=== PATIENT | female | born 1940 | race Caucasian/White ===

== ENCOUNTER → 2019-08-21 | Outpatient (CLI) | payer OTHER, MEDICARE | END | disposition home or self-care (01) | LOC: RAD 08:29 | PROVIDERS: ATTEND Internal Medicine Gastroenterology | DX: K44.9 Diaphragmatic hernia without obstruction or gangrene (principal); K31.89 Other diseases of stomach and duodenum; K57.10 Diverticulosis of small intestine without perforation or abscess without bleeding; K59.00 Constipation, unspecified; E11.9 Type 2 diabetes mellitus without complications; Z88.6 Allergy status to analgesic agent; Z88.5 Allergy status to narcotic agent | CPT/HCPCS: 74220 ==

== ENCOUNTER → 2019-10-10 | Outpatient (CLI) | payer OTHER, MEDICARE ==
[~2019-10-10] MED LIST: ALLO100T30 PO; B CO1TAB14 PO; CALC1TAB4 PO; ESOM40CA PO; LEVO75TA PO; LOSA100T14 PO; LYSI500T25 PO; MULT-658 PO; PIOG30TA67 PO; SODI650T PO; UBID1CAP43 PO
== END | disposition home or self-care (01) ==
LOC: STAR 10:11
PROVIDERS: ATTEND Thoracic Surgery (Cardiothoracic Vascular Surgery)
DX: Z01.818 Encounter for other preprocedural examination (principal)
CPT/HCPCS: 93005

== ENCOUNTER 2019-10-17 06:53 | Observation (INO) | payer OTHER, MEDICARE ==
[~2019-10-17] VITALS: Ht 156.2 cm; Wt 85.2 kg
[2019-10-17] MEDS ORDERED: EPINEPHRINE 1 MG/ML, 1ML ONE (06:54)
[2019-10-17] MEDS ORDERED: BUPIVACAINE/PF 0.5% ONE (06:54)
[2019-10-17] MEDS ORDERED: LACTATED RINGERS 1,000 ML IV SCH (07:16)
[2019-10-17 07:19] VITALS: BP 136/73
[2019-10-17] MEDS ORDERED: LIDOCAINE-MPF 1%, 2ML INFIL ONE (07:30)
[2019-10-17] MEDS ORDERED: SODIUM CHLORIDE 0.9% 1,000 ML IV SCH (07:32)
[2019-10-17] MEDS ORDERED: MIDAZOLAM 1 MG/ML, 2ML ONE (08:15)
[2019-10-17] MEDS ORDERED: FENTANYL PF 250 MCG/5ML ONE (08:15)
[2019-10-17] MEDS ORDERED: DEXAMETHASONE 4 MG/ML, 1ML ONE (08:16)
[2019-10-17] MEDS ORDERED: PROPOFOL 10 MG/ML, 20ML ONE (08:16)
[2019-10-17] MEDS ORDERED: ONDANSETRON 2MG/ML, 2ML ONE (08:16)
[2019-10-17] MEDS ORDERED: CEFOTETAN PMX 2GM/50ML 50 ML ONE (08:16)
[2019-10-17] MEDS ORDERED: SUGAMMADEX 200 MG/2 ML IVPush ONE (08:16)
[2019-10-17] MEDS ORDERED: ROCURONIUM 10MG/ML,5ML ONE (08:16)
[2019-10-17] MEDS ORDERED: LIDOCAINE-MPF 2% ,5ML ONE (08:16)
[2019-10-17] MEDS: LACTATED RINGERS 1,000 ML IV SCH ×2 (10:41→19:54)
[2019-10-17] MEDS ORDERED: HALOPERIDOL 5 MG/ML IV PRN (11:00)
[2019-10-17] MEDS ORDERED: ENALAPRILAT 1.25 MG/ML, 2ML IV PRN (11:00)
[2019-10-17] MEDS ORDERED: OXYcodone 5 MG/5 ML ORAL.SOL UDC PO PRN (11:00)
[2019-10-17] MEDS ORDERED: MEPERIDINE/PF 25MG/ML,1ML IVPush PRN (11:00)
[2019-10-17] MEDS ORDERED: HYDROmorphone 2 MG/ML, 1ML IVPush PRN (11:00)
[2019-10-17] MEDS ORDERED: ONDANSETRON 2MG/ML, 2ML IVPush PRN (11:00)
[2019-10-17] MEDS ORDERED: hydrALAzine 20 MG/ML, 1ML IV PRN ×2 (11:00)
[2019-10-17] MEDS ORDERED: FENTANYL PF 100 MCG/2ML IV PRN (11:00)
[2019-10-17] MEDS: INSULIN REGULAR 100 UNITS/ML, 3ML VIAL SQ-INSULIN SCH ×3 (11:00→19:56)
[2019-10-17] MEDS ORDERED: OXYcodone 5 MG/5 ML ORAL.SOL UDC ONE ×2 (11:53→13:39)
[2019-10-17] MEDS ORDERED: FAMOTIDINE 20 MG/2 ML ONE (11:56)
[2019-10-17] MEDS: FAMOTIDINE 20 MG/2 ML IV SCH ×2 (12:15→23:58)
[2019-10-17] MEDS: OXYcodone 5 MG/5 ML ORAL.SOL UDC PO PRN ×3 (13:39→20:54)
[2019-10-17 18:39] VITALS: BP 151/75
[2019-10-18 00:48] VITALS: BP 126/59
[2019-10-18] MEDS: LACTATED RINGERS 1,000 ML IV SCH ×3 (03:52→19:55)
[2019-10-18] MEDS: LEVOTHYROXINE 75 MCG TABLET PO SCH (05:36)
[2019-10-18] MEDS: INSULIN REGULAR 100 UNITS/ML, 3ML VIAL SQ-INSULIN SCH ×4 (07:00→20:58)
[2019-10-18] MEDS: morphine SULFATE 10 MG/ML, 1ML IV PRN ×2 (07:15→07:30)
[2019-10-18 07:21] VITALS: BP 127/71
[2019-10-18] MEDS: PIOGLITAZONE 15 MG TABLET PO SCH (09:00)
[2019-10-18 09:41] LABS: BASOPHILS # (AUTO) 0.03 x10^3/uL (0-0.1); BASOPHILS % (AUTO) 0 % (0-1); EOSINOPHILS % (AUTO) 0 % (1-7); LYMPHOCYTES # (AUTO) 1.11 x10^3/uL (1-3.4); LYMPHOCYTES % (AUTO) 8 % (22-44); MD NO; MEAN CORPUSCULAR HEMOGLOBIN 32.2 pg (27.0-34.8); MEAN CORPUSCULAR HGB CONC 32.7 g/dL (32.4-35.8); MEAN CORPUSCULAR VOLUME 98.5 fL (80-100); MEAN PLATELET VOLUME 9.3 fL (7.4-10.4); MONOCYTES % (AUTO) 2 % (2-9); NEUTROPHILS # (AUTO) 12.31 x10^3/uL (1.8-6.8); NEUTROPHILS % (AUTO) 90 % (42-75); PLATELET COUNT 255 x10^3/uL (130-400); RED BLOOD COUNT 3.85 x10^6/uL (3.82-5.3); RED CELL DISTRIBUTION WIDTH 16.2 % (9.6-15.2)
[2019-10-18] MEDS ORDERED: KETOROLAC 30 MG/1 ML IVPush PRN (10:30)
[2019-10-18] MEDS: ALLOPURINOL 100 MG TABLET PO SCH ×2 (10:32→20:57)
[2019-10-18] MEDS: LOSARTAN 100 MG TAB PO SCH (10:32)
[2019-10-18] MEDS: FAMOTIDINE 20 MG/2 ML IV SCH (11:17)
[2019-10-18 14:05] VITALS: BP 131/74
[2019-10-18] MEDS: OXYcodone 5 MG/5 ML ORAL.SOL UDC PO PRN ×2 (15:27→20:02)
[2019-10-18 19:10] VITALS: BP 144/77
[2019-10-19 00:54] VITALS: BP 124/65
[2019-10-19] MEDS: OXYcodone 5 MG/5 ML ORAL.SOL UDC PO PRN ×2 (00:56→06:01)
[2019-10-19] MEDS: LACTATED RINGERS 1,000 ML IV SCH (03:54)
[2019-10-19] MEDS: LEVOTHYROXINE 75 MCG TABLET PO SCH (06:00)
[2019-10-19] MEDS: INSULIN REGULAR 100 UNITS/ML, 3ML VIAL SQ-INSULIN SCH ×2 (07:00→11:00)
[2019-10-19 07:17] VITALS: BP 100/50
[2019-10-19] MEDS ORDERED: FAMOTIDINE 20 MG/2 ML IV SCH (09:00)
[2019-10-19] MEDS ORDERED: FAMOTIDINE 20 MG TABLET PO SCH (09:00)
[2019-10-19] MEDS: ALLOPURINOL 100 MG TABLET PO SCH (09:14)
[2019-10-19] MEDS: PIOGLITAZONE 15 MG TABLET PO SCH (09:14)
[2019-10-19] MEDS: LOSARTAN 100 MG TAB PO SCH (09:15)
[2019-10-19] MEDS ORDERED: OXYC5CAP2 PO (09:32)
== END 2019-10-19 12:24 | disposition home or self-care (01) ==
LOC: OUT 06:53 → ORIP 10:41 → 4NW 14:34 → DCLOUNGE 10-19 12:18
PROVIDERS: ADMIT Thoracic Surgery (Cardiothoracic Vascular Surgery); ATTEND Thoracic Surgery (Cardiothoracic Vascular Surgery)
DX: K44.0 Diaphragmatic hernia with obstruction, without gangrene (principal); K21.9 Gastro-esophageal reflux disease without esophagitis; E11.9 Type 2 diabetes mellitus without complications; E03.9 Hypothyroidism, unspecified; E61.1 Iron deficiency; Z88.5 Allergy status to narcotic agent; Z91.013 Allergy to seafood
CPT/HCPCS: 43282; 82962; 85025; 96374; 96375; 96376; C1781; G0378; J0171; J1100; J1885; J2250; J2270; J2405; J2704; J3010; J3490; J7030; J7120; S0020

== ENCOUNTER 2019-10-23 15:49 | Inpatient (IN) | payer OTHER, MEDICARE ==
[~2019-10-23] VITALS: Ht 154.9 cm; Wt 88.2 kg
[~2019-10-23 15:49] MED LIST changes: +OXYC5CAP2 PO
[2019-10-23] MEDS ORDERED: SODIUM CHLORIDE 0.9% 1,000ML IVBOLUS ONE (17:00)
[2019-10-23 17:19] LABS: BASOPHILS # (AUTO) 0.04 x10^3/uL (0-0.1); BASOPHILS % (AUTO) 0 % (0-1); EOSINOPHILS # (AUTO) 0.05 x10^3/uL (0-0.4); EOSINOPHILS % (AUTO) 0 % (1-7); LYMPHOCYTES % (AUTO) 9 % (22-44); MD NO; MEAN CORPUSCULAR HGB CONC 33.1 g/dL (32.4-35.8); MEAN CORPUSCULAR VOLUME 96.9 fL (80-100); MEAN PLATELET VOLUME 9.6 fL (7.4-10.4); MONOCYTES % (AUTO) 5 % (2-9); NEUTROPHILS # (AUTO) 11.67 x10^3/uL (1.8-6.8); NEUTROPHILS % (AUTO) 85 % (42-75); PLATELET COUNT 364 x10^3/uL (130-400); RED BLOOD COUNT 4.12 x10^6/uL (3.82-5.3); RED CELL DISTRIBUTION WIDTH 15.6 % (9.6-15.2)
[2019-10-23 17:21] LABS: ANION GAP 12 mmol/L (5-15); CALCIUM 8.8 mg/dL (8.5-10.1); CHLORIDE 103 mmol/L (98-107); CREATININE 1.24 mg/dL (0.55-1.02)
--- NOTE | 2019-10-23 17:21 | NUR ---
REPORT GIVEN TO RINKU BAER
--- NOTE | 2019-10-23 17:22 | NUR ---
RECEIVED REPORT FROM ANIA. PT UPRIGHT ON GURNEY WITH EYES CLOSED BUT RESPONDS APPROP TO STAFF, NAD, NO NEEDS AT THIS TIME, CALL LIGHT WITHIN REACH.
[2019-10-23 18:19] LABS: TROPONIN I 0.147 ng/mL (0.000-0.045)
--- NOTE | 2019-10-23 18:34 | NUR ---
UNABLE TO ESTABLISH PIV DESPITE MULTIPLE ATTEMPTS, PT TO XR.
--- NOTE | 2019-10-23 18:53 | NUR ---
PT RETURNED FROM XR
--- NOTE | 2019-10-23 18:55 | NUR ---
REPORT GIVEN TO JESSICA
[2019-10-23] MEDS ORDERED: FUROSEMIDE 40 MG/4 ML ONE (19:08)
[2019-10-23] MEDS ORDERED: NITROGLYCERIN OINT 2%, 1GM TP ONE ×2 (19:09→19:30)
[2019-10-23] MEDS ORDERED: ASPIRIN 81 MG TABLET CHEW ONE (19:09)
[2019-10-23] MEDS ORDERED: FUROSEMIDE 40 MG/4 ML IVPush ONE (19:30)
[2019-10-23] MEDS ORDERED: ENOXAPARIN 80 MG/0.8 ML SQ ONE (19:30)
[2019-10-23] MEDS ORDERED: ASPIRIN 81 MG TABLET CHEW PO ONE (19:30)
[2019-10-23] MEDS ORDERED: ACETAMINOPHEN 325 MG TABLET PO PRN (20:00)
[2019-10-23] MEDS ORDERED: DILTIAZEM 5 MG/ML, 5ML IVPush PRN (20:00)
[2019-10-23] MEDS ORDERED: ONDANSETRON 2MG/ML, 2ML IVPush PRN (20:00)
[2019-10-23] MEDS ORDERED: OMNIPAQUE 350 MG/ML, 100ML BOTTLE ONE (20:13)
[2019-10-23] MEDS ORDERED: POTASSIUM CHLORIDE 20 MEQ in LACTATED RINGERS 1,000 ML IV SCH (20:40)
[2019-10-23] MEDS ORDERED: ALLOPURINOL 100 MG TABLET PO SCH (21:00)
[2019-10-23] MEDS: INSULIN LISPRO 100 UNITS/ML, PEN SQ-INSULIN SCH (21:00)
[2019-10-23 21:28] LABS: INTERNATIONAL NORMALIZED RATIO 1.06 (0.93-1.1); PROTHROMBIN TIME 11.2 Seconds (9.6-11.5)
[2019-10-23 21:33] LABS: TROPONIN I 0.156 ng/mL (0.000-0.045)
[2019-10-23 21:38] LABS: FREE T4 (FREE THYROXINE) 1.45 ng/dL (0.76-1.46)
[2019-10-23] MEDS: PIPERACILLIN/TAZO/PMX 2.25GM 50 ML IV SCH (23:16)
[2019-10-23] MEDS: ENOXAPARIN 80 MG/0.8 ML SQ SCH (23:17)
[2019-10-23] MEDS: SODIUM CHLORIDE FLUSH 10ML SYR IVF SCH (23:17)
[2019-10-23] MEDS: SODIUM BICARBONATE 650 MG TABLET PO SCH (23:17)
[2019-10-24] MEDS ORDERED: MAGNESIUM SULFATE PMX 2GM/50ML 50 ML IV ONE (01:00)
[2019-10-24 02:19] LABS: MICROSCOPIC NOT IND
[2019-10-24 02:21] VITALS: BP 131/82
[2019-10-24 02:22] LABS: CULTURE INDICATED? NO
[2019-10-24 02:29] LABS: CHLORIDE,URINE RANDOM 147 mmol/L; POTASSIUM,URINE RANDOM 9 mmol/L; SODIUM,URINE RANDOM 133 mmol/L
[2019-10-24 02:31] LABS: CREATININE,URINE RANDOM < 13.00 mg/dL
[2019-10-24 02:50] LABS: MEAN CORPUSCULAR HEMOGLOBIN 31.9 pg (27.0-34.8); MEAN CORPUSCULAR VOLUME 96.7 fL (80-100); MEAN PLATELET VOLUME 10.1 fL (7.4-10.4); PLATELET COUNT 317 x10^3/uL (130-400); RED BLOOD COUNT 3.59 x10^6/uL (3.82-5.3); RED CELL DISTRIBUTION WIDTH 15.3 % (9.6-15.2)
[2019-10-24 03:00] LABS: ALANINE AMINOTRANSFERASE 23 U/L (12-78); ALBUMIN 2.4 g/dL (3.4-5.0); ANION GAP 12 mmol/L (5-15); CALCIUM 8.5 mg/dL (8.5-10.1); CHLORIDE 103 mmol/L (98-107); CHOLESTEROL, TOTAL 164 mg/dL (140-239); CREATININE 1.29 mg/dL (0.55-1.02); TRIGLYCERIDES 86 mg/dL (50-200); VLDL CHOLESTEROL 17 mg/dL (0-25)
[2019-10-24 03:02] LABS: ALKALINE PHOSPHATASE 68 U/L (45-117); BILIRUBIN,TOTAL 1.1 mg/dL (0.2-1.0); HDL CHOL % 25 % (28-40); HDL CHOLESTEROL (DIRECT) 41 mg/dL (40-60); LDL CHOLESTEROL,CALCULATED 106 mg/dL (54-169); LDL/HDL RATIO 2.6 (0.5-3.0); TOTAL PROTEIN 6.2 g/dL (6.4-8.2)
[2019-10-24 03:07] LABS: TROPONIN I 0.132 ng/mL (0.000-0.045)
[2019-10-24 03:19] LABS: BASOPHILS # (AUTO) 0.02 x10^3/uL (0-0.1); BASOPHILS % (AUTO) 0 % (0-1); EOSINOPHILS # (AUTO) 0.09 x10^3/uL (0-0.4); EOSINOPHILS % (AUTO) 1 % (1-7); LYMPHOCYTES # (AUTO) 1.03 x10^3/uL (1-3.4); LYMPHOCYTES % (AUTO) 8 % (22-44); MD SCAN; MONOCYTES # (AUTO) 0.88 x10^3/uL (0.2-0.8); MONOCYTES % (AUTO) 7 % (2-9); NEUTROPHILS # (AUTO) 11.39 x10^3/uL (1.8-6.8); NEUTROPHILS % (AUTO) 85 % (42-75)
[2019-10-24] MEDS ORDERED: LEVOTHYROXINE 75 MCG TABLET PO SCH (06:00)
[2019-10-24] MEDS: PIPERACILLIN/TAZO/PMX 2.25GM 50 ML IV SCH ×3 (06:09→17:44)
[2019-10-24] MEDS ORDERED: PANTOPROZOLE 40MG TABLET PO SCH (07:00)
[2019-10-24] MEDS: INSULIN LISPRO 100 UNITS/ML, PEN SQ-INSULIN SCH ×4 (07:00→21:00)
[2019-10-24 07:54] VITALS: BP 133/80
[2019-10-24] MEDS ORDERED: POTASSIUM CHLORIDE 20 MEQ TAB.ER.PRT PO SCH (08:00)
[2019-10-24] MEDS: FUROSEMIDE 20 MG/2 ML IV SCH ×2 (08:20→16:23)
[2019-10-24] MEDS: PANTOPRAZOLE 40 MG IV IVPush SCH (08:20)
[2019-10-24] MEDS: SODIUM CHLORIDE FLUSH 10ML SYR IVF SCH ×2 (08:21→21:47)
[2019-10-24] MEDS ORDERED: LOSARTAN 100 MG TAB PO SCH (09:00)
[2019-10-24] MEDS: SODIUM BICARBONATE 650 MG TABLET PO SCH ×3 (09:00→21:47)
[2019-10-24] MEDS ORDERED: SENNA/DOCUSATE TABLET PO SCH (09:00)
[2019-10-24] MEDS ORDERED: MULTIVITAMIN 1 TABLET PO SCH (09:00)
[2019-10-24] MEDS ORDERED: REGADENOSON 0.4 MG/5 ML SYRINGE ONE (10:48)
[2019-10-24 13:20] VITALS: BP 140/78
[2019-10-24] MEDS ORDERED: METOCLOPRAMIDE 5 MG/ML, 2ML IVPush PRN (18:00)
[2019-10-24] MEDS: ENOXAPARIN 80 MG/0.8 ML SQ SCH (21:47)
[2019-10-24 21:57] VITALS: BP 125/74
[2019-10-25] MEDS: PIPERACILLIN/TAZO/PMX 2.25GM 50 ML IV SCH ×4 (00:29→18:00)
[2019-10-25] MEDS: METOCLOPRAMIDE 5 MG/ML, 2ML IVPush SCH ×4 (00:29→18:00)
[2019-10-25] MEDS: LIDODERM 5% PATCH TD SCH (01:00)
[2019-10-25 03:07] VITALS: BP 123/74
[2019-10-25] MEDS ORDERED: OXYcodone IR 5MG TABLET ONE (03:17)
[2019-10-25] MEDS: OXYcodone IR 5MG TABLET PO PRN (03:18)
[2019-10-25 05:52] LABS: BASOPHILS % (AUTO) 1 % (0-1); EOSINOPHILS # (AUTO) 0.04 x10^3/uL (0-0.4); EOSINOPHILS % (AUTO) 0 % (1-7); LYMPHOCYTES # (AUTO) 0.93 x10^3/uL (1-3.4); LYMPHOCYTES % (AUTO) 7 % (22-44); MD NO; MEAN CORPUSCULAR HEMOGLOBIN 32.1 pg (27.0-34.8); MEAN CORPUSCULAR HGB CONC 33.1 g/dL (32.4-35.8); MEAN CORPUSCULAR VOLUME 96.9 fL (80-100); MEAN PLATELET VOLUME 9.8 fL (7.4-10.4); MONOCYTES # (AUTO) 0.65 x10^3/uL (0.2-0.8); MONOCYTES % (AUTO) 5 % (2-9); NEUTROPHILS # (AUTO) 12.49 x10^3/uL (1.8-6.8); NEUTROPHILS % (AUTO) 88 % (42-75); PLATELET COUNT 373 x10^3/uL (130-400); RED BLOOD COUNT 3.66 x10^6/uL (3.82-5.3); RED CELL DISTRIBUTION WIDTH 15.4 % (9.6-15.2)
[2019-10-25 06:03] LABS: ANION GAP 11 mmol/L (5-15); CALCIUM 8.6 mg/dL (8.5-10.1); CHLORIDE 100 mmol/L (98-107)
[2019-10-25 06:09] LABS: CREATININE 1.69 mg/dL (0.55-1.02); TROPONIN I 0.077 ng/mL (0.000-0.045)
[2019-10-25] MEDS: INSULIN LISPRO 100 UNITS/ML, PEN SQ-INSULIN SCH ×4 (07:00→20:59)
[2019-10-25 07:40] VITALS: BP 136/64
[2019-10-25] MEDS: FUROSEMIDE 20 MG/2 ML IV SCH ×2 (09:16→16:35)
[2019-10-25] MEDS: PANTOPRAZOLE 40 MG IV IVPush SCH (09:16)
[2019-10-25] MEDS: SODIUM BICARBONATE 650 MG TABLET PO SCH ×3 (09:16→20:55)
[2019-10-25] MEDS: SODIUM CHLORIDE FLUSH 10ML SYR IVF SCH ×2 (09:16→20:56)
[2019-10-25 15:35] VITALS: BP 128/73
[2019-10-25] MEDS: ACETAMINOPHEN 325 MG TABLET PO PRN ×2 (18:18→20:55)
[2019-10-25 20:40] VITALS: BP 103/57
[2019-10-25] MEDS: ENOXAPARIN 80 MG/0.8 ML SQ SCH (20:55)
[2019-10-26 00:12] VITALS: BP 111/47
[2019-10-26] MEDS: LIDODERM 5% PATCH TD SCH (00:21)
[2019-10-26] MEDS: METOCLOPRAMIDE 5 MG/ML, 2ML IVPush SCH ×4 (00:21→18:03)
[2019-10-26] MEDS: PIPERACILLIN/TAZO/PMX 2.25GM 50 ML IV SCH ×4 (00:22→18:03)
[2019-10-26 05:26] LABS: BASOPHILS # (AUTO) 0.03 x10^3/uL (0-0.1); BASOPHILS % (AUTO) 0 % (0-1); EOSINOPHILS # (AUTO) 0.19 x10^3/uL (0-0.4); EOSINOPHILS % (AUTO) 2 % (1-7); LYMPHOCYTES # (AUTO) 1.08 x10^3/uL (1-3.4); LYMPHOCYTES % (AUTO) 9 % (22-44); MD NO; MEAN CORPUSCULAR HEMOGLOBIN 31.7 pg (27.0-34.8); MEAN CORPUSCULAR HGB CONC 32.7 g/dL (32.4-35.8); MEAN CORPUSCULAR VOLUME 96.9 fL (80-100); MEAN PLATELET VOLUME 9.6 fL (7.4-10.4); MONOCYTES # (AUTO) 0.73 x10^3/uL (0.2-0.8); MONOCYTES % (AUTO) 6 % (2-9); NEUTROPHILS # (AUTO) 10.76 x10^3/uL (1.8-6.8); NEUTROPHILS % (AUTO) 84 % (42-75); PLATELET COUNT 386 x10^3/uL (130-400); RED BLOOD COUNT 3.66 x10^6/uL (3.82-5.3); RED CELL DISTRIBUTION WIDTH 15.4 % (9.6-15.2)
[2019-10-26 05:39] LABS: ANION GAP 9 mmol/L (5-15); CALCIUM 8.3 mg/dL (8.5-10.1); CHLORIDE 100 mmol/L (98-107)
[2019-10-26 05:41] LABS: CREATININE 1.88 mg/dL (0.55-1.02)
[2019-10-26] MEDS: PANTOPROZOLE 40MG TABLET PO SCH (06:15)
[2019-10-26] MEDS: INSULIN LISPRO 100 UNITS/ML, PEN SQ-INSULIN SCH ×4 (07:00→21:00)
[2019-10-26 08:40] VITALS: BP 122/70
[2019-10-26] MEDS: SODIUM CHLORIDE FLUSH 10ML SYR IVF SCH ×2 (09:00→21:03)
[2019-10-26 09:34] LABS: ALBUMIN 2.4 g/dL (3.4-5.0)
[2019-10-26 09:37] LABS: TOTAL PROTEIN 6.5 g/dL (6.4-8.2)
[2019-10-26] MEDS: SODIUM BICARBONATE 650 MG TABLET PO SCH ×3 (09:42→21:03)
[2019-10-26] MEDS: OXYcodone IR 5MG TABLET PO PRN (09:43)
[2019-10-26 13:55] VITALS: BP 114/60
[2019-10-26] MEDS ORDERED: LIDOCAINE 1%, 10ML ONE (15:47)
[2019-10-26 19:21] VITALS: BP 112/74
[2019-10-26] MEDS: ENOXAPARIN 100 MG/ML SQ SCH (21:03)
[2019-10-27] MEDS: PIPERACILLIN/TAZO/PMX 2.25GM 50 ML IV SCH ×4 (00:24→18:19)
[2019-10-27] MEDS: LIDODERM 5% PATCH TD SCH (00:25)
[2019-10-27] MEDS: METOCLOPRAMIDE 5 MG/ML, 2ML IVPush SCH ×4 (00:25→18:10)
[2019-10-27 01:32] VITALS: BP 104/69
[2019-10-27 04:57] LABS: BASOPHILS # (AUTO) 0.09 x10^3/uL (0-0.1); BASOPHILS % (AUTO) 1 % (0-1); EOSINOPHILS # (AUTO) 0.13 x10^3/uL (0-0.4); EOSINOPHILS % (AUTO) 1 % (1-7); LYMPHOCYTES # (AUTO) 1.68 x10^3/uL (1-3.4); LYMPHOCYTES % (AUTO) 11 % (22-44); MD NO; MEAN CORPUSCULAR HGB CONC 33.1 g/dL (32.4-35.8); MEAN CORPUSCULAR VOLUME 96.5 fL (80-100); MEAN PLATELET VOLUME 9.4 fL (7.4-10.4); MONOCYTES # (AUTO) 0.54 x10^3/uL (0.2-0.8); MONOCYTES % (AUTO) 4 % (2-9); NEUTROPHILS # (AUTO) 12.88 x10^3/uL (1.8-6.8); NEUTROPHILS % (AUTO) 84 % (42-75); PLATELET COUNT 390 x10^3/uL (130-400); RED BLOOD COUNT 3.45 x10^6/uL (3.82-5.3); RED CELL DISTRIBUTION WIDTH 15.1 % (9.6-15.2)
[2019-10-27 05:10] LABS: CALCIUM 8.1 mg/dL (8.5-10.1); CHLORIDE 99 mmol/L (98-107)
[2019-10-27 05:12] LABS: ANION GAP 6 mmol/L (5-15); CREATININE 1.71 mg/dL (0.55-1.02)
[2019-10-27] MEDS: PANTOPROZOLE 40MG TABLET PO SCH (06:23)
[2019-10-27] MEDS: INSULIN LISPRO 100 UNITS/ML, PEN SQ-INSULIN SCH ×4 (07:00→20:39)
[2019-10-27 07:07] VITALS: BP 127/74
[2019-10-27] MEDS ORDERED: POTASSIUM CHLORIDE 40 MEQ in SODIUM CHLORIDE 0.9% 500 ML IV ONE (08:00)
[2019-10-27] MEDS: SODIUM CHLORIDE FLUSH 10ML SYR IVF SCH ×2 (08:25→19:49)
[2019-10-27] MEDS: SODIUM BICARBONATE 650 MG TABLET PO SCH ×3 (08:25→19:48)
[2019-10-27 13:20] VITALS: BP 117/76
[2019-10-27 19:18] VITALS: BP 123/72
[2019-10-27] MEDS: ENOXAPARIN 100 MG/ML SQ SCH (19:48)
[2019-10-27] MEDS: ACETAMINOPHEN 325 MG TABLET PO PRN (20:03)
[2019-10-28] MEDS: METOCLOPRAMIDE 5 MG/ML, 2ML IVPush SCH ×2 (00:03→06:05)
[2019-10-28] MEDS: PIPERACILLIN/TAZO/PMX 2.25GM 50 ML IV SCH ×4 (00:04→17:55)
[2019-10-28 00:09] VITALS: BP 128/66
[2019-10-28] MEDS: LIDODERM 5% PATCH TD SCH (00:21)
[2019-10-28 05:43] LABS: BASOPHILS # (AUTO) 0.06 x10^3/uL (0-0.1); BASOPHILS % (AUTO) 0 % (0-1); EOSINOPHILS # (AUTO) 0.17 x10^3/uL (0-0.4); EOSINOPHILS % (AUTO) 1 % (1-7); LYMPHOCYTES # (AUTO) 1.91 x10^3/uL (1-3.4); LYMPHOCYTES % (AUTO) 15 % (22-44); MD NO; MEAN CORPUSCULAR HGB CONC 33.4 g/dL (32.4-35.8); MEAN CORPUSCULAR VOLUME 95.9 fL (80-100); MONOCYTES # (AUTO) 0.32 x10^3/uL (0.2-0.8); MONOCYTES % (AUTO) 3 % (2-9); NEUTROPHILS # (AUTO) 10.05 x10^3/uL (1.8-6.8); NEUTROPHILS % (AUTO) 80 % (42-75); PLATELET COUNT 437 x10^3/uL (130-400); RED BLOOD COUNT 3.67 x10^6/uL (3.82-5.3); RED CELL DISTRIBUTION WIDTH 15.4 % (9.6-15.2)
[2019-10-28 05:51] LABS: ANION GAP 9 mmol/L (5-15); CALCIUM 8.2 mg/dL (8.5-10.1); CHLORIDE 99 mmol/L (98-107)
[2019-10-28 05:52] LABS: CREATININE 1.59 mg/dL (0.55-1.02)
[2019-10-28] MEDS: PANTOPROZOLE 40MG TABLET PO SCH (06:05)
[2019-10-28 07:01] VITALS: BP 151/66
[2019-10-28] MEDS: INSULIN LISPRO 100 UNITS/ML, PEN SQ-INSULIN SCH ×4 (08:36→21:02)
[2019-10-28] MEDS: SODIUM CHLORIDE FLUSH 10ML SYR IVF SCH ×2 (11:26→21:02)
[2019-10-28] MEDS: LACTOBACILLUS CHEW TABLET PO SCH ×3 (12:12→21:00)
[2019-10-28 12:34] VITALS: BP 144/75
[2019-10-28 14:17] LABS: CLOSTRIDIUM DIFFICILE ANTIGEN NEGATIVE; CLOSTRIDIUM DIFFICILE TOXIN NEGATIVE (Negative)
[2019-10-28 20:01] VITALS: BP 132/81
[2019-10-28] MEDS: ENOXAPARIN 100 MG/ML SQ SCH (21:01)
[2019-10-29] MEDS: LIDODERM 5% PATCH TD SCH (00:43)
[2019-10-29] MEDS: PIPERACILLIN/TAZO/PMX 2.25GM 50 ML IV SCH ×2 (00:43→06:10)
[2019-10-29 00:49] VITALS: BP 127/76
[2019-10-29 06:05] LABS: ANION GAP 9 mmol/L (5-15); CALCIUM 8.4 mg/dL (8.5-10.1); CHLORIDE 103 mmol/L (98-107); CREATININE 1.47 mg/dL (0.55-1.02)
[2019-10-29 06:06] LABS: BASOPHILS # (AUTO) 0.03 x10^3/uL (0-0.1); BASOPHILS % (AUTO) 0 % (0-1); EOSINOPHILS # (AUTO) 0.18 x10^3/uL (0-0.4); EOSINOPHILS % (AUTO) 2 % (1-7); LYMPHOCYTES # (AUTO) 1.53 x10^3/uL (1-3.4); LYMPHOCYTES % (AUTO) 14 % (22-44); MD NO; MEAN CORPUSCULAR HEMOGLOBIN 31.9 pg (27.0-34.8); MEAN CORPUSCULAR HGB CONC 32.9 g/dL (32.4-35.8); MONOCYTES # (AUTO) 0.66 x10^3/uL (0.2-0.8); MONOCYTES % (AUTO) 6 % (2-9); NEUTROPHILS % (AUTO) 77 % (42-75); PLATELET COUNT 455 x10^3/uL (130-400); RED BLOOD COUNT 3.58 x10^6/uL (3.82-5.3)
[2019-10-29] MEDS: PANTOPROZOLE 40MG TABLET PO SCH (06:10)
[2019-10-29] MEDS: INSULIN LISPRO 100 UNITS/ML, PEN SQ-INSULIN SCH (06:19)
[2019-10-29 07:32] VITALS: BP 158/84
[2019-10-29] MEDS: LACTOBACILLUS CHEW TABLET PO SCH (08:19)
[2019-10-29] MEDS ORDERED: ENOXAPARIN 80 MG/0.8 ML SQ SCH ×2 (09:00→21:00)
[2019-10-29] MEDS ORDERED: PANT40TA5 PO (09:58)
[2019-10-29] MEDS ORDERED: ACID1TAB7 PO (09:58)
[2019-10-29] MEDS ORDERED: AMOX1TAB12 PO (09:58)
[2019-10-29 11:55] VITALS: BP 141/86
== END 2019-10-29 12:48 | disposition home health service (06) | DRG 186 ==
LOC: ED 19:05 → SUATTDRO 19:08 → EDIP 19:13 → ED 19:27 → 5SO 20:29 → DCLOUNGE 10-29 12:35
PROVIDERS: ADMIT Hospitalist; ATTEND Internal Medicine
PROC: 0W9B3ZZ Drainage of Left Pleural Cavity, Percutaneous Approach (ICD-10-PCS; principal; 2019-10-26)
DX: J90 Pleural effusion, not elsewhere classified (principal); J69.0 Pneumonitis due to inhalation of food and vomit; J86.9 Pyothorax without fistula; I13.0 Hypertensive heart and chronic kidney disease with heart failure and stage 1 through stage 4 chronic kidney disease, or unspecified chronic kidney disease; I50.1 Left ventricular failure, unspecified; E78.5 Hyperlipidemia, unspecified; E11.22 Type 2 diabetes mellitus with diabetic chronic kidney disease; M54.6 Pain in thoracic spine; I48.91 Unspecified atrial fibrillation; R07.2 Precordial pain; M10.9 Gout, unspecified; N18.3 Chronic kidney disease, stage 3 (moderate); Z79.4 Long term (current) use of insulin; Z87.891 Personal history of nicotine dependence; Z90.49 Acquired absence of other specified parts of digestive tract
CPT/HCPCS: 32555; 36415; 74022; 74246; 82945; 89051; 93017; 99285; J3490; 71045; 71275; 78452; 80048; 80053; 80061; 81003; 82040; 82436; 82570; 82962; 83036; 83615; 83690; 83735; 83880; 84100; 84133; 84155; 84157; 84300; 84439; 84443; 84484; 85025; 85610; 87015; 87070; 87075; 87116; 87205; 87206; 87324; 93005; 93306; G0378; J1650; J1940; J2543; J2785; J3480; Q9967; A9502; C9113; J1815; J2765; J3475; J7040; J7120

== ENCOUNTER → 2020-01-30 | Outpatient (CLI) | payer OTHER, MEDICARE ==
[~2020-01-30] MED LIST changes: +ACID1TAB7 PO; +AMOX1TAB12 PO; +PANT40TA5 PO
== END | disposition home or self-care (01) ==
LOC: RAD 08:33
PROVIDERS: ATTEND Internal Medicine Gastroenterology
DX: K31.89 Other diseases of stomach and duodenum (principal); R13.10 Dysphagia, unspecified; R10.13 Epigastric pain; E11.9 Type 2 diabetes mellitus without complications; R14.0 Abdominal distension (gaseous); E66.9 Obesity, unspecified
CPT/HCPCS: 74220

== ENCOUNTER → 2020-04-30 | Outpatient (CLI) | payer MEDICARE ==
[~2020-04-30] MED LIST changes: -PANT40TA5 PO; +PANT40TA6 PO
== END | disposition home or self-care (01) ==
LOC: CVU 07:34
PROVIDERS: ATTEND Internal Medicine
DX: I73.9 Peripheral vascular disease, unspecified (principal)
CPT/HCPCS: 93922